=== PATIENT | female | born 1960 | race Caucasian/White ===

== ENCOUNTER 2017-12-23 15:27 | Emergency (ER) | payer BC ==
[~2017-12-23] VITALS: Ht 153.7 cm; Wt 80.5 kg
[2017-12-23] MEDS ORDERED: ORPH100T2 PO (16:44)
[2017-12-23 17:00] VITALS: BP 131/71
== END 2017-12-23 17:14 | disposition home or self-care (01) ==
LOC: ER 15:28
DX: S29.012A Strain of muscle and tendon of back wall of thorax, initial encounter (principal); F17.200 Nicotine dependence, unspecified, uncomplicated; Z88.8 Allergy status to other drugs, medicaments and biological substances; Z79.899 Other long term (current) drug therapy; X58.XXXA Exposure to other specified factors, initial encounter; Y93.89 Activity, other specified; Y92.89 Other specified places as the place of occurrence of the external cause; Y99.8 Other external cause status
CPT/HCPCS: 72070; 99284